=== PATIENT | female | born 1990 | race Caucasian/White ===

== ENCOUNTER 2018-04-06 15:10 | Inpatient (IN) | payer MEDICAID ==
[~2018-04-06] VITALS: Ht 152.4 cm; Wt 67.3 kg
[2018-04-06 15:29] VITALS: Ht 152.4 cm; Wt 67.3 kg
[2018-04-06 15:30] VITALS: BP 126/75; PULSE 92; RESP 18
[2018-04-06] MEDS ORDERED: PREN-99 PO (15:33)
[2018-04-06] MEDS ORDERED: FER325 PO (15:33)
--- NOTE | 2018-04-06 17:35 | HP ---
Date/Time of Note Date/Time of Note DATE: 04/06/18 TIME: 17:33 OB - History Hx of Present Free Text/Dictation 39+WKS GA with CTXs : 3 Para: 2 Care: Good Care Ultrasounds: Normal mid trimester US Obstetrical Complications: None Medical Complications: None Past Family/Social History * Past Medical, Surgical, Family and Obstetric Histories reviewed from chart. OB Admission Exam Vital Signs Vital Signs Vital Signs Date Temp Pulse Resp B/P (MAP) Pulse Ox O2 O2 Flow FiO2 Time Delivery Rate 04/06/18 98.5 92 18 126/75 Room Air 15:30 (92) Physical Exam Abdomen: WNL Extremities: Normal Cervical Dilatation: 1cm Effacement: 75% Station: -1 Membranes: Intact Heart Rate: 140's Accelerations: Accelerations Present Decelerations: No Decelerations Varibility: Moderate Contractions on Admission: 6-10 Minutes Apart OB Assessment/Plan Reason for admission: observation Plan: Expectant Management Other plan: HARSHAD 21 Early labor Observation over night Continuous monitoring BALDEMAR STROUD M.D. Apr 06, 2018 17:35
--- NOTE | 2018-04-06 18:00 | TRIAGE ---
OB Triage Datetime Report Generated by CPN: 04/06/2018 18:00 Datetime: 04/06/2018 17:21 Pain Assessment Pain Scale: 0 Pain Presence: None/Denies Pain Type: N/A Pain Assessment Comments: pt denies having pain at this time. Pt denies feeling UCs. Datetime: 04/06/2018 16:20 Labor Evaluation Frequency: occasional Monitor Mode: External Duration (sec)2399: 50-70 Quality: Mild Resting Tone Savage: Relaxed Contraction Comments: uterine irritability noted Heart Rate FHR Baseline Rate: 130 Monitor Mode: External US FHR Baseline Changes: No Baseline Change Variability: Moderate 6-25 bpm Accelerations: 15X15 Decelerations: None Category: Category I Datetime: 04/06/2018 16:18 Pain Assessment Pain Scale: 2 Pain Presence: Intermittent Pain Type: Contraction; Ache Pain Location: Abdomen Pain Relief Measures: Comfort Measures Datetime: 04/06/2018 15:35 Stage of : OB Triage Assessment Type: Triage Maternal Assessment Level of Consciousness: Fully Conscious DTR's/Clonus: DTRs 2+; No Clonus Headache: Denies Blurred Vision: No Respiratory Effort: Unlabored; Regular Rhythm; Equal Expansion Breath Sounds, Left: Clear and Equal Breath Sounds, Right: Clear and Equal Nausea/Vomiting: Denies RUQ Epigastric Pain: Denies Lower Extremities Edema: None Degree: None Upper Extremities Edema: None Degree: None Facial Edema: None Temperature Route: Oral Fall Risk Assessment History of Falling: (0) No Secondary Diagnosis: (0) No Ambulatory Aid: (0) Bedrest/Nurse Assist IV Therapy: (0) No Gait: (0) Normal/Bedrest/Immobile Mental Status: (0) Oriented to Own Ability Fall Score: 0 Fall Risk Score Definition: No Risk: No action required Labor Evaluation Frequency: x1 Monitor Mode: External Duration (sec)2399: 80 Quality: Mild Resting Tone Savage: Relaxed Heart Rate FHR Baseline Rate: 130 Monitor Mode: External US FHR Baseline Changes: No Baseline Change Variability: Moderate 6-25 bpm Accelerations: 15X15 Decelerations: None Category: Category I Pain Assessment Pain Scale: 8 Pain Presence: Intermittent Pain Type: Contraction; Ache Pain Location: Abdomen Datetime: 04/06/2018 15:34 Time of Arrival: 04/06/2018 15:09 EGA: 39.2 Arrived By: Ambulatory Arrived From: Dr. Boucher Chief Complaint: pt is here from the clinic c/o UCs Movement: Present Contractions: Regular Time Contractions Began: 04/06/2018 14:00 Contractions: every 5 min Rupture of Membranes: Denies Vaginal Bleeding: None Vaginal Discharge: Present Recent Sexual Intercouse: Denies Abdominal Trauma: Not Applicable Patient Complaints: Contractions Time Provider Notified: 04/06/2018 16:05 Provider Notified: Dr Martinez Datetime: 04/06/2018 15:27 Vaginal Exam Dilatation (cms): 1.0 Station: -3 Exam By: PHI
[2018-04-06] MEDS ORDERED: OXYTOCIN 30 UNITS/LR 500 ML IV PRN (18:30)
[2018-04-06] MEDS ORDERED: BUTORPHANOL 2 MG INJ IV PRN (18:30)
[2018-04-06] MEDS ORDERED: MISOPROSTOL 200 MCG TAB PR PRN (18:30)
[2018-04-06] MEDS ORDERED: OXYTOCIN 30 UNITS/LR 500 ML IV SCH ×2 (18:30)
[2018-04-06] MEDS ORDERED: IBUPROFEN 600 MG TAB PO PRN (18:30)
[2018-04-06] MEDS: LACTATED RINGER'S 1,000 ML IV SCH (18:30)
[2018-04-06] MEDS ORDERED: LIDOCAINE 1% (MPF) 30 ML INJ INJ PRN (18:30)
[2018-04-06] MEDS ORDERED: CARBOPROST 250 MCG INJ IM PRN (18:30)
[2018-04-06] MEDS ORDERED: OXYCODONE/ASPIRIN (4.88/325) TAB PO PRN (18:30)
[2018-04-06] MEDS ORDERED: METHYLERGONOVINE 0.2 MG INJ IM PRN (18:30)
[2018-04-06] MEDS ORDERED: BUTORPHANOL 1 MG INJ IV PRN (18:30)
[2018-04-06] MEDS: MISOPROSTOL 50 MCG CAPSULE PO SCH ×2 (18:34→22:03)
[2018-04-07] MEDS: LACTATED RINGER'S 1,000 ML IV SCH (01:29)
[2018-04-07] MEDS: MISOPROSTOL 50 MCG CAPSULE PO SCH (02:10)
--- NOTE | 2018-04-07 04:36 | QN ---
Documentation Comment 27 years old with single intrauterine at 39 weeks and 3days admitted in early labor. Later on Pitocin for augmentation of labor given. She states good movement. She denies nausea, vomiting, shortness of breath, chest pain, headache, visual changes, vaginal bleeding. She is afebrile, vital signs stable. Exam on admission was 1/thick/-3/cephalic intact membrane. Membranes ruptured spontaneously during process of labor. Vaginal exam 1 AM was 3/80/-2/rupture/clear. Her blood type is A+, rubella immune and GBS is negative. Continue current management. VANITA BYRD Apr 07, 2018 04:36
--- NOTE | 2018-04-07 06:06 | LDN ---
Date/Time of Note Date/Time of Note DATE: 04/07/18 TIME: 06:02 Delivery Summary 27 years old with single intrauterine at 39 weeks and 3days with bradycardia. Vacuum delivery with risks and benefit discussed in detail with patient and her partner. Both expressed understanding. All of their questions answered, they have agreed with vacuum delivery. Bladder was catheterized and emptied. Vacuum assisted delivery of a viable male over intact perineum. Nose and mouth suctioned. Rest of body delivered. Cord clamped and cut after stopping pulsation. Placenta delivered intact and spontaneously with three-vessel cord. Patient tolerated procedure well. Time of delivery 05:01 Weight 3260 g - 7 pound 3 ounces 8 at 1 minutes and 9 at 5 minutes EBL 150 mL Weeks of Gestation 39 weeks and 3 days Assisted Vaginal Delivery: Vacuum Placenta Delivered: Spontaneously Meconium: none Episiotomy: No Estimated blood loss: 150 Sponge & Needle done & correct: Yes All needle counts correct: Yes Any foreign bodies felt in the: No Delivery Information Sex Sex: male Apgars 1 Minute: 8 5 Minute: 9 10 Minute: 10 Suctioning Nose & mouth suctioned at maxim: Yes Umbilical Cord Umbilical cord with: 3 Vessels Cord presentations: no nuchal cord Cord Blood was obtained: Yes Mother & Baby Disposition Disposition Mom & Baby to Maternity; Good: Yes VANITA BYRD Apr 07, 2018 06:06
--- NOTE | 2018-04-07 06:17 | DELSUM ---
Delivery Summary A-C Datetime Report Generated by CPN: 04/07/2018 06:16 DELIVERY PERSONNEL Software Support Specialist: Cheatham, Neyda MATERNAL INFORMATION Delivery Anesthesia: None Medications in Delivery: 30 UNIT PITOCIN Delivery QBL (ml): 150 Placenta Cultured: No Maternal Complications: None LABOR SUMMARY EDC: 04/11/2018 00:00 No. Babies in Womb: 1 Attempted: No Labor Anesthesia: IV Sedation LABOR INFORMATION Reason for Induction: Other Reason for Induction- Other: ELECTIVE Onset of Labor: 04/07/2018 20:00 Complete Dilatation: 04/07/2018 04:48 Cervical Ripening Agents: Cytotec @ Oxytocin: N/A Group B Beta Strep: Negative Antibiotics # of Doses: 0 Steroids Given: None Reason Steroids Not Administered: Not Applicable MEMBRANES Membranes Rupture Method: Spontaneous Rupture of Membranes: 04/07/2018 01:43 Length of Rupture (hr): 3.30 Amniotic Fluid Color: Clear Amniotic Fluid Amount: Large Amniotic Fluid Odor: Normal STAGES OF LABOR Stage 1 hr: -15 Stage 1 min: -12 Stage 2 hr: 0 Stage 2 min: 13 Stage 3 hr: 0 Stage 3 min: 3 Total Time in Labor hr: -14 Total Time in Labor min: -56 VAGINAL DELIVERY Episiotomy: None Laceration Extension: N/A Laceration Type: None Laceration Repair: Not Applicable Initial Vag Sponge Count: 10 Final Vag Sponge Count: 10 Initial Vag Sharps Count: 1 Final Vag Sharps Count: 1 Sponge Count Correct: Yes; Vaginal Sweep Performed Sharps Count Correct: Yes BABY A INFORMATION Delivery Date/Time: 04/07/2018 05:01 Method of Delivery: Vaginal Born in Route : No : N/A Forceps: N/A Vacuum Extraction: Successful Shoulder Dystocia : N/A ASSISTED DELIVERY BABY A Indication for Assisted Delivery: BRADYCARDIA Catheter Prior to Procedure: Yes Station Vacuum/Forcep Apply: 1 Position Vacuum/Forcep Apply: Left Occipital Anterior Vacuum Number of Pulls: 2 Vacuum Number of PopOffs: 1 Vacuum Maximum Pressure Obtained: 500 Reduce Pressure btwn Ctx: Yes Vacuum Power System Operator: KIWI Total Time Vacuum Applied: 70 seconds SHOULDER DYSTOCIA BABY A Infant Delivery Date/Time: 04/07/2018 05:01 PRESENTATION/POSITION BABY A Presentation: Cephalic Presentation: Cephalic Cephalic Presentation: Vertex Breech Presentation: N/A PLACENTA INFORMATION BABY A Placenta Delivery Time : 04/07/2018 05:04 Placenta Method of Delivery: Spontaneous Placenta Status: Delivered SCORES BABY A Heart Rate 1 min: >100 bpm Resp Effort 1 min: Good Cry Reflex Irritability 1 min: Cough/Sneeze/Pulls Away Muscle Tone 1 min: Active Motion Color 1 min: Blue/Pale Resuscitation Effort 1 min: Tactile Stimulation SCORE 1 MIN: 8 Heart Rate 5 min: >100 bpm Resp Effort 5 min: Good Cry Reflex Irritability 5 min: Cough/Sneeze/Pulls Away Muscle Tone 5 min: Active Motion Color 5 min: Body [place], Extremit Blue Resuscitation Effort 5 min: Tactile Stimulation SCORE 5 MIN: 9 INFORMATION BABY A Gestational Age at Delivery: 39.3 Gestational Status: Full Term- 39- 40.6 Weeks Infant Outcome : Liveborn Condition : Stable Infant Sex: Male IDENTIFICATION/MEDS BABY A ID Band Number: [id number] ID Band Location: Right Leg; Left Arm Sensor Number: [id number] Sensor Location : Cord Clamp Vitamin K Given : Not Given Erythromycin Given: Not Given WEIGHT/LENGTH BABY A Infant Birthweight (gm): 3260 Weight (lb): 7 Weight (oz): 3 Length (in): 19.50 Infant Length (cm): 49.53 CORD INFORMATION BABY A No. Cord Vessels: 3 Nuchal Cord : N/A Cord Blood Taken: Yes Infant Suction: Mouth; Nose ASSESSMENT BABY A Complications: Multiple Variable Decels Physical Findings at Delivery: Within Normal Limits Respirations: Appears Normal Assistant Softball Coach/ALS Called : No Infant Care By: NICU TEAM Transferred To: Remains with Mother
[2018-04-07] MEDS ORDERED: ONDANSETRON 4 MG INJ IV PRN (06:30)
[2018-04-07] MEDS ORDERED: MISOPROSTOL 200 MCG TAB PR PRN (06:30)
[2018-04-07] MEDS ORDERED: LANOLIN HPA 1 PKT TOP PRN (06:30)
[2018-04-07] MEDS ORDERED: METHYLERGONOVINE 0.2 MG INJ IM PRN (06:30)
[2018-04-07] MEDS ORDERED: ACETAMINOPHEN 325 MG TAB PO PRN (06:30)
[2018-04-07] MEDS ORDERED: ZOLPIDEM 5 MG TAB PO PRN (06:30)
[2018-04-07] MEDS ORDERED: OXYTOCIN 30 UNITS/LR 500 ML IV PRN (06:30)
[2018-04-07] MEDS ORDERED: BENZOCAINE 20% 56 ML SPRAY TOP PRN (06:30)
[2018-04-07] MEDS ORDERED: OXYCODONE/ASPIRIN (4.88/325) TAB PO PRN (06:30)
[2018-04-07] MEDS ORDERED: SENNA/DOCUSATE NA (8.6MG/50MG) TAB PO PRN (06:30)
[2018-04-07] MEDS ORDERED: WITCH HAZEL/GLYCERIN PAD PR PRN (06:30)
[2018-04-07] MEDS ORDERED: DIPHENHYDRAMINE 50 MG INJ IV PRN (06:30)
[2018-04-07] MEDS ORDERED: DIBUCAINE 1% 30 GM OINT TOP PRN (06:30)
[2018-04-07] MEDS ORDERED: CARBOPROST 250 MCG INJ IM PRN (06:30)
[2018-04-07 07:51] VITALS: BP 124/71; PULSE 77; RESP 20
[2018-04-07 08:45] VITALS: BP 119/62; PULSE 80; RESP 18
[2018-04-07 09:15] VITALS: BP 117/60; PULSE 78; RESP 18
[2018-04-07 11:52] VITALS: BP 99/56; PULSE 82; RESP 18
[2018-04-07] MEDS: IBUPROFEN 600 MG TAB PO SCH ×2 (11:52→17:33)
[2018-04-07] MEDS: DEXTROSE 5%-LR 1,000 ML IV SCH ×2 (14:06→22:06)
[2018-04-07] MEDS: LACTATED RINGER'S 1,000 ML IV* SCH ×2 (14:06→22:06)
[2018-04-07 15:45] VITALS: BP 106/63; PULSE 76; RESP 16
[2018-04-07 20:00] VITALS: BP 111/68; PULSE 72; RESP 19
[2018-04-08] MEDS: IBUPROFEN 600 MG TAB PO SCH ×4 (01:40→17:52)
[2018-04-08 04:00] VITALS: BP 103/69; PULSE 73; RESP 20
[2018-04-08] MEDS: DEXTROSE 5%-LR 1,000 ML IV SCH (05:46)
[2018-04-08] MEDS: LACTATED RINGER'S 1,000 ML IV* SCH (05:46)
[2018-04-08 08:15] VITALS: BP 105/62; PULSE 83; RESP 18
--- NOTE | 2018-04-08 12:52 | PN ---
Date/Time of Note Date/Time of Note DATE: 04/08/18 TIME: 12:50 OB Subjective Subjective Subjective Breast-feeding. Vaginal bleeding decreased. Denies any shortness of breath or chest pain. Reports a slight discomfort in perineum. Urinated. Ambulating without any symptoms. Lochia decreased. OB Objective Objective Objective General appearance: Alert and oriented x4 does not appear to be in any acute distress Abdomen: Soft, fundus firm and appropriate tenderness noted Fundus palpable below the umbilicus and nontender Extremities: No calf tenderness, no click no edema no cord palpable Lungs: Clear to auscultation bilaterally Breast: No evidence of mastitis or fissure Laboratory Tests Test 04/06/18 18:48 04/08/18 06:12 04/08/18 07:07 White Blood Count 10.2 10^3/ul 11.8 10^3/ul Red Blood Count 4.26 10^6/ul 4.12 10^6/ul Hemoglobin 12.2 g/dl 12.0 g/dl Hematocrit 37.2 % 37.3 % Mean Corpuscular Volume 87.3 fl 90.5 fl Mean Corpuscular 28.6 pg 29.1 pg Hemoglobin Mean Corpuscular 32.8 g/dl 32.2 g/dl Hemoglobin Concent Red Cell Distribution 12.8 % 13.2 % Width Platelet Count 191 10^3/UL 180 10^3/UL Mean Platelet Volume 11.2 fl 11.1 fl Immature Granulocytes % 0.700 % 0.800 % Neutrophils % 68.4 % 68.8 % Lymphocytes % 21.3 % 21.6 % Monocytes % 8.7 % 7.5 % Eosinophils % 0.4 % 0.9 % Basophils % 0.5 % 0.4 % Nucleated Red Blood Cells 0.0 /100WBC 0.0 /100WBC % Immature Granulocytes # 0.070 10^3/ul 0.090 10^3/ul Neutrophils # 7.0 10^3/ul 8.1 10^3/ul Lymphocytes # 2.2 10^3/ul 2.6 10^3/ul Monocytes # 0.9 10^3/ul 0.9 10^3/ul Eosinophils # 0.0 10^3/ul 0.1 10^3/ul Basophils # 0.1 10^3/ul 0.1 10^3/ul Nucleated Red Blood Cells 0.0 10^3/ul 0.0 10^3/ul # Prothrombin Time 12.0 Sec Prothrombin Time Ratio 0.9 INR International 0.88 Normalized Ratio Activated 25.6 Sec Partial Thromboplast Time Rapid Plasma Reagin NONREACTIVE Lab Scanned Report [facility] [id number] OB Assessment/Plan Other Assessment: Status post day #1 Doing well Routine care anticipate DC home tomorrow EVENS NASCIMENTO MD Apr 08, 2018 12:52
[2018-04-08 16:31] VITALS: BP 112/58; PULSE 76; RESP 20
[2018-04-08 20:25] VITALS: BP 115/73; PULSE 79; RESP 18
[2018-04-09 03:49] VITALS: BP 109/60; PULSE 70; RESP 18
[2018-04-09] MEDS: IBUPROFEN 600 MG TAB PO SCH ×3 (06:34→11:25)
[2018-04-09 08:45] VITALS: BP 99/55; PULSE 88; RESP 18
[2018-04-09] MEDS ORDERED: DIPHTH/TET/ACEL PERTUSS (ADULT) 0.5 ML VIAL IM* ONE (09:00)
[2018-04-09] MEDS ORDERED: MEASLES,MUMPS,RUBELLA VACCINE INJ SC* ONE (09:00)
--- NOTE | 2018-04-09 12:24 | QN ---
Documentation Comment PPD#2 is stable afebrile tolerates Diet No VB +BM +voids VS stable Gen NAD Abd soft NT ND Genitalia No blood at perineum --->Discharge Home --->precautions discussed BALDEMAR STROUD M.D. Apr 09, 2018 12:24
--- NOTE | 2018-04-09 12:26 | DS ---
Date/Time of Note Date/Time of Note DATE: 04/09/18 TIME: 12:25 Discharge Summary Admission/Discharge Info Admit Date/Time Apr 06, 2018 at 17:40 Discharge Date/Time 04/09/2018 Discharge Diagnosis Patient Condition: Good Hospital Course uneventful Home Meds Reported Medications Ferrous Sulfate* (Ferrous Sulfate*) 325 Mg Tabec, 325 MG PO DAILY, TAB 04/06/18 Vit #76/Iron,Carb/FA (Pnv 29-1 Tablet) 1 Each Tablet, 1 EACH PO DAILY, TAB 04/06/18 Primary Care Provider Care Physician BALDEMAR Reed M.D. Apr 09, 2018 12:26
== END 2018-04-09 14:40 | disposition home or self-care (01) | DRG 807 ==
LOC: OBT 15:10 → L-D 15:11 → OBT 17:40 → L-D 17:40 → PP1 04-07 08:35
PROVIDERS: ADMIT Obstetrics & Gynecology; ATTEND Obstetrics & Gynecology
PROC: 10D07Z6 Extraction of Products of Conception, Vacuum, Via Natural or Artificial Opening (ICD-10-PCS; principal; 2018-04-07)
DX: O76 Abnormality in fetal heart rate and rhythm complicating labor and delivery (principal); Z37.0 Single live birth; Z3A.39 39 weeks gestation of pregnancy
CPT/HCPCS: 76815; 76816; 85025; 85610; 85730; 86592; 86850; 86900; 86901; 90686; 90715; 99464; G0463; J0595; J2210; J2590; J7120; J7121